=== PATIENT | female | born 1970 | race Caucasian/White ===

== ENCOUNTER 2016-09-10 05:38 | Day surgery (SDC) | payer BC ==
[~2016-09-10] VITALS: Ht 154.9 cm; Wt 81.8 kg
[2016-09-10] VITALS (27 sets, daily range): BP systolic 82–139; BP diastolic 42–83; PULSE 68–82; RESP 16–26; Ht 154.9 cm; Wt 81.8 kg
[2016-09-10 07:02] LABS: ALBUMIN 4.2 g/dl (3.3-4.9)
[2016-09-10] MEDS ORDERED: FURO40TA4 PO (07:02)
[2016-09-10] MEDS ORDERED: DIVA-16 PO (07:02)
[2016-09-10] MEDS ORDERED: SPIR100T31 PO (07:02)
[2016-09-10] MEDS ORDERED: PANT40TA4 PO (07:02)
[2016-09-10] MEDS ORDERED: METO100T2 PO (07:02)
[2016-09-10] MEDS ORDERED: APIX2.5T PO (07:02)
[2016-09-10 07:03] LABS: INR 1.01; PROTIME 13.3 Sec (12.2-14.2)
[2016-09-10 07:05] LABS: BILIRUBIN,INDIRECT 0.6 mg/dl (0-1.1); BILIRUBIN,TOTAL 0.6 mg/dl (0.2-1.3); TOTAL PROTEIN 7.3 g/dl (6.1-8.1)
[2016-09-10 07:06] LABS: CREATININE 0.52 mg/dl (0.44-1.00); POTASSIUM 4.5 mmol/L (3.5-5.1)
[2016-09-10 07:07] LABS: CALCIUM 9.3 mg/dl (8.4-10.2)
[2016-09-10] MEDS ORDERED: LIDOCAINE 1% (MDV) 20 ML INJ ONE (07:16)
[2016-09-10] MEDS ORDERED: SOD CHLORIDE 0.9% 500 ML ONE (07:16)
[2016-09-10 07:18] LABS: BASOPHILS % 0.7 % (0.0-2.0); EOSINOPHILS # 0.1 10^3/ul (0.0-0.5); EOSINOPHILS % 1.4 % (0.0-7.0); HEMATOCRIT 37.7 % (37.0-47.0); HEMOGLOBIN 12.8 g/dl (12.0-16.0); LYMPHOCYTES # 2.2 10^3/ul (0.8-2.9); LYMPHOCYTES % 39.2 % (15.0-51.0); MEAN CORPUSCULAR HEMOGLOBIN 30.8 pg (29.0-33.0); MEAN CORPUSCULAR HGB CONC 33.9 g/dl (32.0-37.0); MEAN PLATELET VOLUME 9.5 fl (7.4-10.4); MONOCYTE # 0.4 10^3/ul (0.3-0.9); MONOCYTES % 6.6 % (0.0-11.0); NEUTROPHIL # 2.9 10^3/ul (1.6-7.5); NEUTROPHILS % 52.1 % (39.0-77.0); PLATELET COUNT 56 10^3/UL (140-440); RED BLOOD COUNT 4.14 10^6/ul (4.20-5.40); RED CELL DISTRIBUTION WIDTH 13.5 % (11.5-14.5); UNCORRECTED WBC 5.6 10^3/ul (4.8-10.8); WHITE BLOOD COUNT 5.6 10^3/ul (4.8-10.8)
[2016-09-10 07:29] LABS: CONDITION 1
[2016-09-10] MEDS ORDERED: MIDAZOLAM 1 MG/ML 2 ML INJ ONE (07:30)
[2016-09-10] MEDS ORDERED: IODIXANOL LOCM 100 ML BTL ONE (07:30)
[2016-09-10] MEDS ORDERED: NITROGLYCERIN (IC) 100 MCG/ML INJ ONE (07:31)
[2016-09-10] MEDS ORDERED: HEPARIN 1000 UNITS/ML 10 ML INJ ONE (07:31)
[2016-09-10] MEDS ORDERED: VERAPAMIL 5 MG INJ ONE (07:31)
[2016-09-10] MEDS ORDERED: FENTAnyl 50 MCG/ML VIAL ONE (07:31)
[2016-09-10] MEDS ORDERED: DIPHENHYDRAMINE 50 MG INJ ONE (07:37)
--- NOTE | 2016-09-10 10:03 | OPR ---
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 The patient now presents for a left heart catheterization due to the fact that she has been having s evere episodes of chest pain, shortness of breath, angina equivalent discomfort and cannot tolerate the stress test and it was submaximal. As a result due to her history of congenital heart defects, and significant symptoms of classic angina, I had recommended for her to have a definitive result wi th the angiography. PROCEDURE: 1. Left heart catheterization. 2. Selective right coronary angiography. 3. Selective left coronary angiography. 4. Selective left ventriculogram with passing of the catheter across the aortic valve. 5. Right radial approach angiography. 6. Extremity angiography of the right arm. 7. Fluoroscopy and fluoroscopic views showed the guide needle placement to the vessel. 8. Conscious sedation for 1 hour. 9. Fluoroscopy. DESCRIPTION OF PROCEDURE: After informed consent was obtained by the patient, the patient was broug ht into the cardiac catheterization laboratory where the patient's right groin and right radial roberto on was prepped and draped in the usual sterile fashion. Following this, 1% lidocaine was used in or joanna to infiltrate at the right wrist, right radial region. Following this, utilizing micropuncture needle, access was performed. No complications occurred. Following this, the patient had a Brenton c atheter placed into the left coronary artery, followed by into the right coronary artery, followed b y into the left ventricle. No complications occurred. FINDINGS: 1. The patient had a short left main, which was patent. 2. The left main gave branches to the LAD as well as in the circumflex coronary artery. 3. There were no significant blockages in the LAD, less than 5% blockage. 4. The circumflex coronary artery was a dominant vessel again it had less than 5% stenosis, if any. 5. The RCA was a fairly large vessel as well, it was a codominant system and again it had less than 5% stenosis. 6. Left ventriculogram was performed in the HILL position and the patient had an ejection fraction o f approximately 55%. No complications occurred. The patient's catheters were removed and a TR band was applied over the right wrist. The patient wa s sent to recovery. IMPRESSION: 1. Patent, no significant coronary artery disease. 2. Ejection fraction is preserved at 55%. I would recommend for the patient to continue current medications and follow up with me in the offic e. Please note that the patient also has a history of cardiac defibrillator which was implanted at [facility] in the past when she had a history of cardiac arrest. Dictated By: KYUNG DOWNEY MD, LP/HUE Conf#: [id number] DID#: [id number]
--- NOTE | 2016-09-10 14:26 | RADRPT ---
Vent Rate: 80 bpm RR Interval: 0 msec SD Interval: 0 msec QRS Duration: 162 msec QT Interval: 468 msec QTC Interval: 539 msec P-R-T [place]: 0 - 60 - 0 degrees Wide QRS rhythm Right bundle branch block T wave abnormality, consider inferolateral ischemia Abnormal ECG Electronically Signed By: Jack Hogue [id number]
== END 2016-09-10 13:35 | disposition home or self-care (01) ==
LOC: SDS 05:38
PROVIDERS: ATTEND Internal Medicine
DX: R07.9 Chest pain, unspecified (principal); R06.02 Shortness of breath; I50.9 Heart failure, unspecified; E11.9 Type 2 diabetes mellitus without complications; I48.91 Unspecified atrial fibrillation; I10 Essential (primary) hypertension
CPT/HCPCS: 80048; 80076; 85025; 85610; 85730; 93005; 93458; C1769; C1887; J1200; J1644; J2250; J3010; J7040; Q9967; Z7610

== ENCOUNTER 2016-10-04 16:07 | Emergency (ER) | payer BC ==
[~2016-10-04] VITALS: Wt 78.5 kg
[~2016-10-04 16:07] MED LIST: APIX2.5T PO; DIVA-16 PO; FURO40TA4 PO; METO100T2 PO; PANT40TA4 PO; SPIR100T31 PO
[2016-10-04] MEDS ORDERED: ACYC800T57 PO (16:38)
[2016-10-04] MEDS ORDERED: IBUP800T25 PO (16:38)
--- NOTE | 2016-10-04 16:51 | ERD ---
ER Documentation Chief Complaint Date/Time DATE: 10/04/16 TIME: 16:47 Chief Complaint BACK PAIN/POSSILE SHINGLES X 1 WEEK HPI 46-year-old female complaining of pain in the right middle back 4-5 days. In the last day or 2, the pain has spread to the front. Describes pain as picking like sensation. Patient has history of chickenpox as a child. She also had history of hypertension, and heart valve replacement. Denies fever or chills. ROS All systems reviewed and are negative except as per history of present illness. Medications Home Meds Active Scripts Ibuprofen* (Motrin*) 800 Mg Tab, 800 MG PO Q8 Y for PAIN AND OR ELEVATED TEMP, # 30 TAB Prov:SALLIE MACARIO. [employer]ER 10/04/16 Acyclovir* (Zovirax*) 800 Mg Tablet, 800 MG PO 5 TIMES DAILY for 7 Days, TAB Prov:SALLIE MACARIO. [employer] 10/04/16 Reported Medications Pantoprazole (Protonix) 40 Mg Tabec, 40 MG PO DAILY, TAB 09/10/16 Spironolactone* (Spironolactone*) 100 Mg Tablet, 50 MG PO DAILY, TAB 09/10/16 Apixaban* (Eliquis*) 2.5 Mg Tablet, 5 MG PO BID, TAB 09/10/16 Divalproex Sodium* (Divalproex Sodium*) 500 Mg Tablet.dr, 500 MG PO DAILY, #120 TAB 09/10/16 Furosemide* (Furosemide*) 40 Mg Tablet, 40 MG PO DAILY, TAB 09/10/16 Metoprolol Tartrate (Metoprolol Tartrate) 100 Mg Tablet, 100 MG PO DAILY, #60 TAB 09/10/16 Allergies Allergies: Coded Allergies: No Known Allergy (Unverified , 01/18/14) PMhx/Soc History of Surgery: Yes (Mitral. Tricuspid valve surgery, AICD) Anesthesia Reaction: No Hx Neurological Disorder: Yes (Stroke) Hx Respiratory Disorders: Yes (Asthma) Hx Cardiac Disorders: Yes (HTN, CHF ) Hx Psychiatric Problems: Yes (Depression, Bipolar) Hx Miscellaneous Medical Probl: Yes (ASHD,heart failure, DM, htn,mental d/o, depression) Hx Alcohol Use: No Hx Substance Use: No Hx Tobacco Use: No Physical Exam Vitals Vital Signs Date Time Temp Pulse Resp B/P Pulse Ox O2 Delivery O2 Flow Rate FiO2 10/04/16 16:09 98.0 78 18 136/63 99 Physical Exam General impression: Well-developed, well-nourished. Alert, oriented, in no acute distress Head: Normocephalic, atraumatic. Neck: Supple, nontender. No lymphanopathy. No nuchal rigidity. Respiration: Normal respiratory effort. Lungs clear to auscultate bilaterally. No wheezes, rales or rhonchi. Cardiovascular: Regular rate and rhythm. No murmurs or extra heart sounds. Abdomen: Abdomen normal to inspection. Nontender. No masses or organomegaly. Bowel sounds normal. Back: Normal to inspection. No midline spine tenderness. No CVA tenderness. Extremities: Extremities normal to inspection, nontender. ROM normal. Neuro: Mental status normal, speech normal. [employer] grossly intact. Skin: Normal turgor. Vesicular lesions noted on the right side of the torso , following the T6-T7 dermatomes. Psych: Normal mood and affect. Procedures/MDM Well-appearing 46-year-old female complaining of pain in her right middle back times for 5 days. On exam, she has vesicular lesions following a T6-T7 dermatomes, consistent with herpes zoster. Low suspicion for skeletal or muscular causes of pain. Patient appears well, stable for discharge and outpatient management. Medical decision making shared with patient and family. Education provided to patient and family. Patient and family expressed understanding of the plan. Medications on discharge: Acyclovir, ibuprofen. Follow-up: Primary care provider in 2-3 days or return to ED if worse. Departure Diagnosis: Primary Impression: Herpes zoster Herpes zoster complications: without complications Qualified Code: B02.9 - Herpes zoster without complication Condition: Good Patient Instructions: Shingles (Herpes Zoster) Additional Instructions: Call your primary care doctor TOMORROW for an appointment during the next 2-3 days.See the doctor sooner or return here if your condition worsens before your appointment time. SALLIE MACARIO NP Oct 04, 2016 16:51
== END 2016-10-04 16:43 | disposition home or self-care (01) ==
LOC: E/R 16:07
DX: B02.9 Zoster without complications (principal); I10 Essential (primary) hypertension; I50.9 Heart failure, unspecified; E11.9 Type 2 diabetes mellitus without complications; J45.909 Unspecified asthma, uncomplicated; I25.10 Atherosclerotic heart disease of native coronary artery without angina pectoris
CPT/HCPCS: 99283

== ENCOUNTER 2016-11-20 15:51 | Emergency (ER) | payer BC ==
[~2016-11-20] VITALS: Wt 68.0 kg
[~2016-11-20 15:51] MED LIST changes: +ACYC800T57 PO; +IBUP800T25 PO
[2016-11-20] MEDS ORDERED: SPIR50TA PO (16:48)
[2016-11-20] MEDS ORDERED: BUPR300T48 PO (16:49)
[2016-11-20] MEDS ORDERED: RANI150T9 PO (16:50)
[2016-11-20] MEDS ORDERED: METO-407 PO (16:52)
[2016-11-20] MEDS ORDERED: ASPIRIN 81 MG TAB PO STA (17:25)
--- NOTE | 2016-11-20 17:54 | RADRPT ---
PROCEDURE: XR Chest. CLINICAL INDICATION: Shortness of breath. TECHNIQUE: Single frontal view. COMPARISON: 01/18/2014. FINDINGS: The nasogastric tube has been removed. The lungs are clear. The heart is enlarged. There is a dual lead internal cardiac defibrillator. There are sternal wire s. There is no pleural effusion. There is no pneumothorax. IMPRESSION: 1. Nasogastric tube removed. 2. Clear lungs. 3. Prior cardiac surgery. 4. Cardiomegaly. 5. Dual lead internal cardiac defibrillator. RPTAT: QQ .Sanjay Saldivar MD, Date Time Electronically viewed and signed by .Sanjay Saldivar MD, on 11/20/2016 17:53 .R/
[2016-11-20 17:55] LABS: ADD SCAN DIFF NO
[2016-11-20 17:59] LABS: BASOPHIL # 0.1 10^3/ul (0.0-0.1); BASOPHILS % 0.9 % (0.0-2.0); EOSINOPHILS % 0.5 % (0.0-7.0); HEMATOCRIT 40.9 % (37.0-47.0); LYMPHOCYTES # 1.8 10^3/ul (0.8-2.9); MEAN CORPUSCULAR HEMOGLOBIN 29.5 pg (29.0-33.0); MEAN CORPUSCULAR HGB CONC 31.8 g/dl (32.0-37.0); MEAN PLATELET VOLUME 11.4 fl (7.4-10.4); MONOCYTE # 0.7 10^3/ul (0.3-0.9); MONOCYTES % 8.9 % (0.0-11.0); NEUTROPHILS % 65.4 % (39.0-77.0); PLATELET COUNT 172 10^3/UL (140-415); RED CELL DISTRIBUTION WIDTH 13.9 % (11.5-14.5); WHITE BLOOD COUNT 7.7 10^3/ul (4.8-10.8)
[2016-11-20 18:08] LABS: INR 1.26; POTASSIUM 4.4 mmol/L (3.5-5.1); PROTIME 15.9 Sec (12.2-14.2); PT RATIO 1.2
[2016-11-20 18:09] LABS: PARTIAL THROMBOPLASTIN TIME 37.4 Sec (25.0-35.0)
[2016-11-20 18:11] LABS: CREATININE 0.82 mg/dl (0.44-1.00)
[2016-11-20 18:12] LABS: CALCIUM 9.4 mg/dl (8.4-10.2)
[2016-11-20 18:22] LABS: TROPONIN-I 0.014 ng/ml (0.00-0.12)
--- NOTE | 2016-11-20 18:32 | ERD ---
ER Documentation Chief Complaint Date/Time DATE: 11/20/16 TIME: 18:30 Chief Complaint pt internal defibrilator went off yesterday, now has chest pain, mild sob HPI 46-year-old female with a history of hypertension, Mau's anomaly, atrial fibrillation, tricuspid valve replacement, cardiac arrest status post ICD placement presenting after she had a shock from her ICD yesterday. She had no loss of consciousness. Ever since then she has felt some pressure-like anterior chest pain that has been persistent, aching, 5 out of 10, nonradiating. She has also felt slight shortness of breath at rest and with exertion. She denies any dizziness, nausea, vomiting, diaphoresis. She spoke with her case management rn, Dr. Jackson, who recommended she go to the ER if her symptoms do not resolve. She has been feeling weak since yesterday, which is the reason why she came in today. ROS All systems reviewed and are negative except as per history of present illness. Medications Home Meds Reported Medications Metoprolol Tartrate* (Lopressor*) 100 Mg Tablet, 100 MG PO BID, #60 TAB 11/20/16 Ranitidine Hcl* (Zantac*) 150 Mg Tablet, 150 MG PO HS, #30 TAB 11/20/16 Bupropion Hcl* (Wellbutrin XL*) 300 Mg Tab.sr.24h, 300 MG PO DAILY, TAB.SA 11/20/16 Spironolactone* (Aldactone*) 50 Mg Tablet, 50 MG PO DAILY, #30 TAB 11/20/16 Apixaban* (Eliquis*) 2.5 Mg Tablet, 5 MG PO BID, TAB 09/10/16 Divalproex Sodium* (Divalproex Sodium*) 500 Mg Tablet.dr, 500 MG PO DAILY, #120 TAB 09/10/16 Furosemide* (Furosemide*) 40 Mg Tablet, 40 MG PO DAILY, TAB 09/10/16 Discontinued Reported Medications Pantoprazole (Protonix) 40 Mg Tabec, 40 MG PO DAILY, TAB 09/10/16 Spironolactone* (Spironolactone*) 100 Mg Tablet, 50 MG PO DAILY, TAB 09/10/16 Metoprolol Tartrate (Metoprolol Tartrate) 100 Mg Tablet, 100 MG PO DAILY, #60 TAB 09/10/16 Discontinued Scripts Ibuprofen* (Motrin*) 800 Mg Tab, 800 MG PO Q8 Y for PAIN AND OR ELEVATED TEMP, # 30 TAB Prov:RENALDOSALLIE X. [employer] 10/04/16 Acyclovir* (Zovirax*) 800 Mg Tablet, 800 MG PO 5 TIMES DAILY for 7 Days, TAB Prov:SALLIE MACARIO Joana. [employer] 10/04/16 Allergies Allergies: Coded Allergies: No Known Allergy (Unverified , 11/20/16) PMhx/Soc History of Surgery: Yes (Mitral. Tricuspid valve surgery, AICD) Anesthesia Reaction: No Hx Neurological Disorder: Yes (Stroke) Hx Respiratory Disorders: Yes (Asthma) Hx Cardiac Disorders: Yes (HTN, CHF ) Hx Psychiatric Problems: Yes (Depression, Bipolar) Hx Miscellaneous Medical Probl: Yes (ASHD,heart failure, DM, htn,mental d/o, depression) Hx Alcohol Use: No Hx Substance Use: No Hx Tobacco Use: No Smoking Status: Never smoker FmHx Family History: No coronary disease Physical Exam Vitals Vital Signs Date Time Temp Pulse Resp B/P Pulse Ox O2 Delivery O2 Flow Rate FiO2 11/20/16 20:20 59 18 117/73 97 Room Air 11/20/16 15:58 98.8 56 21 122/59 98 Physical Exam Const: No distress, well-developed, well-nourished, speaking in full sentences Head: Atraumatic Eyes: Normal Conjunctiva ENT: Normal External Ears, Nose and Mouth. Neck: Full range of motion. No meningismus. Resp: Clear to auscultation bilaterally Cardio: Chest wall slightly tender to palpation. Regular rate and rhythm, no murmurs Abd: Soft, non tender, non distended. Normal bowel sounds Skin: No petechiae or rashes Back: No midline or flank tenderness Ext: No cyanosis, or edema, 2+ distal pulses Neur: Awake and alert and oriented 3, no facial asymmetry, strength and sensations intact in all 4 extremities Psych: Normal Mood and Affect Result Diagram: 11/20/16173811/20/16 1739 Results 24 hrs Laboratory Tests Test 11/20/16 17:39 White Blood Count 7.710^3/ul Red Blood Count 4.4010^6/ul Hemoglobin 13.0g/dl Hematocrit 40.9% Mean Corpuscular Volume 93.0fl Mean Corpuscular Hemoglobin 29.5pg Mean Corpuscular Hemoglobin Concent 31.8g/dl Red Cell Distribution Width 13.9% Platelet Count 56162^3/UL Mean Platelet Volume 11.4fl Neutrophils % 65.4% Lymphocytes % 24.0% Monocytes % 8.9% Eosinophils % 0.5% Basophils % 0.9% Nucleated Red Blood Cells % 0.0/100WBC Neutrophils # 5.010^3/ul Lymphocytes # 1.810^3/ul Monocytes # 0.710^3/ul Eosinophils # 0.010^3/ul Basophils # 0.110^3/ul Nucleated Red Blood Cells # 0.010^3/ul Prothrombin Time 15.9Sec Prothrombin Time Ratio 1.2 INR International Normalized Ratio 1.26 Activated Partial Thromboplast Time 37.4Sec Sodium Level 136mmol/L Potassium Level 4.4mmol/L Chloride Level 97mmol/L Carbon Dioxide Level 28mmol/L Anion Gap 15 Blood Urea Nitrogen 24mg/dl Creatinine 0.82mg/dl Glucose Level 103mg/dl Calcium Level 9.4mg/dl Troponin I 0.014ng/ml Current Medications Medications (Trade) Dose Ordered Sig/Cyndie Route PRN Reason Start Time Stop Time Status Last Admin Dose Admin Aspirin (Aspirin) 162 mg ONCE STAT PO 11/20/16 17:25 11/20/16 17:27 DC 11/20/16 17:48 Procedures/MDM EMERGENT LABS AND DIAGNOSTIC STUDIES: Lab Results above were reviewed and interpreted by me. No significant abnormality 12-lead EKG was interpreted by Nancy Wolfe MD: Atrial paced rhythm at 55 beats per minute Right bundle branch block No acute ST or T wave changes suggestive of acute ischemia or STEMI. Radiology Results as interpreted by Radiology below were reviewed by Kenny Wolfe MD: Chest x-ray: IMPRESSION: 1. Nasogastric tube removed. 2. Clear lungs. 3. Prior cardiac surgery. 4. Cardiomegaly. 5. Dual lead internal cardiac defibrillator. RPTAT: QQ .Sanjay Saldivar MD, Date Time Electronically viewed and signed by .Sanjay Saldivar MD, MD on 11/20/2016 17:53 Initial Nursing notes reviewed. Previous Medical Records requested via the Electronic Health Record. EMERGENCY DEPARTMENT COURSE / MEDICAL DECISION MAKING: Patient is presenting with generalized weakness after her ICD fired yesterday. She is well-appearing here with normal vitals. I suspect her chest pain is likely chest wall pain secondary to her ICD firing. Labs did not show any acute abnormalities. Her troponin was within normal limits. Her EKG does show evidence of acute ischemia. She is being paced currently. I had [employer] come out and interrogate her pacemaker. It seems like that she had a wide-complex tachycardia at a rate of 206, which is why her ICD fired and she went back into a normal rhythm. I discussed this with her case management rn, who recommended discharge and follow-up in clinic. I discussed this with the patient, and she feels comfortable with the plan. Return precautions were discussed. Patient's blood pressure was elevated (>120/80) but appears stable without evidence of hypertensive emergency or urgency. The patient was counseled about the risks of hypertension and urged to pursue outpatient monitoring and therapy within a week with their primary care physician. Departure Diagnosis: Primary Impression: Defibrillator discharge Additional Impression: Generalized weakness Condition: Stable EKBRYNN SABILLON MD Nov 20, 2016 18:32
[2016-11-20 20:20] VITALS: BP 117/73; PULSE 59; RESP 18
== END 2016-11-20 20:21 | disposition home or self-care (01) ==
LOC: E/R 15:51
DX: T82.198A Other mechanical complication of other cardiac electronic device, initial encounter (principal); I10 Essential (primary) hypertension; J45.909 Unspecified asthma, uncomplicated; I50.9 Heart failure, unspecified; E11.9 Type 2 diabetes mellitus without complications; Y71.8 Miscellaneous cardiovascular devices associated with adverse incidents, not elsewhere classified; Z79.01 Long term (current) use of anticoagulants
CPT/HCPCS: 71010; 80048; 84484; 85025; 85610; 85730; 93005; Z7610; 36415